=== PATIENT | female | born 1940 | race Caucasian/White ===

== ENCOUNTER 2024-10-09 12:09 | Emergency (ER) | payer MEDICARE, SELFPAY ==
--- NOTE | 2024-10-09 12:10 | ED.WOUNDLAC ---
HPI - Wound/Laceration General Stated Complaint: Lacerstion To Right Thumb Discharge Plan Discharge Follow-up/Referrals: UNKNOWN,DOCTOR [Primary Care Provider]
--- NOTE | 2024-10-09 12:23 | PC.NURSE ---
while getting vital signs taken pt noted that bleeding had stopped and she no longer wanted to be seen. Pt left facility ambulating with strong, steady gait.
--- OUTSIDE RECORDS SUMMARY | 2024-10-09 12:29 | XMS_ITS | Clinical Summary ---
Author Organization [facility] Address [address] [place] [address] Care Team Providers Care School Librarian Name Role Phone Truong Pollack MD Unavailable Source Comments [facility],non-owned Affiliates and Associated Physician Practices is amultiple site organization consisting of ambulatory clinics and hospital sitesin [place], [place], [place] and [place]. This disclosure is being madepursuant to the Care Everywhere program and may not contain all information available regarding this patient. Last updated 10/26/17.[facility] Allergies No known active allergies Medications * Be aware that medications may not be up to date on this document. Alwaysverify current medications with the patient. Esomeprazole Magnesium (NEXIUM PO) Take 40 mg by mouth once daily. Active metoprolol tartrate IR (LOPRESSOR) 25 MG tablet Take 25 mg by mouth 2 times daily. Active vitamin E (TOCOPHERYL) 400 UNIT tablet Take by mouth once daily. Active vitamin C (ASCORBIC ACID) 1000 MG TABS tablet Take 1,000 mg by mouth once daily. Active vitamin D, cholecalciferol , 1000 UNITS tablet Take by mouth once daily. Active Vitamin A-Vitamin D-Minerals (SUPER D3 COMPLEX PO) Take by mouth once daily. Active cyanocobalamin (VITAMIN B-12) 1000 MCG tablet Take 1,000 mcg by mouth once daily. Active ferrous sulfate 325 (65 FE) MG tablet Take 325 mg by mouth every Sunday, Sunday & Sunday. Active coenzyme Q10 (COQ10) 100 MG capsule Take 100 mg by mouth once daily. Active atorvastatin (LIPITOR) 40 MG tablet Take 40 mg by mouth at bedtime. Active Active Problems Problem Noted Date Diagnosed Date Knee joint replacement by other means 05/06/2013 Osteoarthrosis involving lower leg 06/18/2012 Overview (05/01/2015): 2015 IMO Updt Immunizations Immunization Administration Dates Next Due INFLUENZA VACCINE 11/22/2012 INFLUENZA VACCINE, TRIV. (FL UZONE; FLULAVAL; FLUARIX; AFLURIA TRIVALENT; 6MO+), 0.5 ML (IIV3) 10/24/2013 PNEUMOCOCCAL PPSV23 04/17/2013 Social History Tobacco Use Types Packs/Day Years Used Date Smoking Tobacco: Former Tobacco Cessation:Counseling Given: Yes Alcohol Use Standard Drinks/Week Comments No 0 (1 standard drink = 0.6 oz pur e alcohol) Comments No Sex and Gender Information Value Date Recorded Sex Assigned at Not on file Legal Sex Female 3:51 PM CDT Gender Identity Not on file Sexual Orientation Not on file Last Filed Vital Signs Vital Sign Reading Time Taken Comments Blood Pressure 138/44 10/24/2013 8:01 AM CDT Pulse 57 10/24/2013 8:01 AM CDT Temperature 36.3 C (97.3 F) 10/24/2013 8:01 AM CDT Respiratory Rate 16 10/24/2013 8:01 AM CDT Oxygen Saturation 95% 10/24/2013 8:01 AM CDT Inhaled Oxygen Concentration - - Weight 76.6 kg (168 lb 12.8 oz) 10/22/2013 7:00 AM CDT Height 160 cm (5' 3) 10/22/2013 7:00 AM CDT Body Mass Index 29.9 10/22/2013 7:00 AM CDT Plan of Treatment Health Maintenance Due Date Last Done Comments BONE DENSITY TESTING 1939 DTAP/TDAP/TD VACCINES (1 - Tdap) 1958 ZOSTER VACCINE (1 of 2) 1989 Respiratory Syncytial Virus (RSV) Vaccine Pt: or over 60 yrs (1 - 1-dose 75+ series) 2014 PNEUMOCOCCAL VACCINE 50+ (2 of 2 - PCV) 04/17/2014 04/17/2013 DEPRESSION SCREENING 02/06/2024 COVID-19 VACCINE (1 - 2023-2 5 season) 2024 INFLUENZA VACCINE (#1) 2024 4, 11/22/2012 HEPATITIS B VACCINE Aged Out No longe r eligible based on patient's age to complete this topic HIB VACCINE Aged Out No longer eligi ble based on patient's age to complete this topic HPV VACCINE Aged Out No longer eligi ble based on patient's age to complete this topic MENINGOCOCCAL (Group B) VACCINE SHARED DECISION-MAKING Aged Out No longer eligible based on patient's age to complete this topic MENINGOCOCCAL GROUPS A/C/Y/W VACCINE Aged Out No longer eligible b ased on patient's age to complete this topic Medical Devices Implanted Type Area Airplane Refueler Device Identifier Shelf Expiration Date Model / Serial / Lot Lui Bone Bomoseen Hv Implanted:Qty: 1 on 04/14/2013 by Turong Pollack MD at [facility] Left: [employer] 10/15/2014 [id number] / / [id number] Ty Tibial I Beam Fix Bar 71mm Implanted:Qty: 1 on 04/14/2013 by Truong Pollack MD at [facility] Left: [employer] 12/15/2022 [id number] / / [id number] Kn Ins Vangurd Fem Cocr R-Intlok Implanted:Qty: 1 on 04/14/2013 by Truong Pollack MD at [facility] Left: [employer] 02/14/2023 [id number] / / [id number] Ngozin Pat Arcom Wire Polyeth Xsm 28 X 8 Implanted:Qty: 1 on 04/14/2013 by Truong Pollack MD at [facility] Left: [employer] 08/14/2017 [id number] / / [id number] Brdg Tib Anu Stbl 12mm X 71mm Implanted:Qty: 1 on 04/14/2013 by Truong Pollack MD at [facility] Left: [employer] 01/14/2017 [id number] / / [id number] Brdg Tib Anu Stbl 14mm X 71mm Implanted:Qty: 1 on 10/22/2013 by Truong Pollack MD at [facility] Right: [employer] 07/05/2018 [id number] / / [id number] Lui Bone Bomoseen Hv Implanted:Qty: 1 on 10/22/2013 by Truong Pollack MD at [facility] Right: [employer] 06/05/2015 [id number] / / [id number] Ty Tibial I Beam Fix Bar 71mm Implanted:Qty: 1 on 10/22/2013 by Truong Pollack MD at [facility] Right: [employer] 08/05/2023 [id number] / / [id number] Butn Pat [employer] Wire Polyeth Xsm 28 X 8 Implanted:Qty: 1 on 10/22/2013 by Truong Pollack MD at [facility] Right: [employer] 08/04/2018 [id number] / / [id number] Kn Ins Vangurd Fem Cocr R-Intlok 62.5mm Implanted:Qty: 1 on 10/22/2013 by Truong Pollack MD at [facility] Right: [employer] 09/05/2023 [id number] / / [id number] Insurance MEDICARE [facility] MEDICARE [facility] Advance Directives Documents on File Type Date Recorded Patient Planning And Analysis Manager Expl anation Adv Directive/Living Will/POA 04/18/2013 5:12 PM EXTERNAL FACILITY DOCUMENTATION Adv Directive/Living Will/POA 04/14/2013 6:31 AM POA * Full Code (Latest Code Status on File) Date Activated Date Inactivated Comments 10/22/2013 11:16 AM 10/24/2013 2:44 PM * Full Code Date Activated Date Inactivated Comments 04/14/2013 12:51 PM 04/17/2013 11:09 AM Care Teams School Librarian Relationship Specialty [place] [id number] [place] [address] Orthopedic Surgery 06/18/12
--- OUTSIDE RECORDS SUMMARY | 2024-10-09 12:29 | XMS_ITS | Clinical Summary ---
Author Organization [facility] Address [address] [facility], [place] [address] Phone Care Team Providers Care Mower Sharpener Name Role Phone Laz Nunez DPM Unavailable [phone] Edilia Dailey APRN, ORAL COMMUNICATION INSTRUCTOR Unavailable Kristin Heath DO Primary Care Provider [phone] John Fox MD Unavailable [phone] Allergies Active Allergy Reactions Criticality Noted Date Comments Atorvastatin Unknown 10/01/2024 Medications pantoprazole (PROTONIX) 40 MG Tablet Delayed ResponseIndications: Chronic gastroesophageal reflux disease TAKE 1 TABLET BY MOUTH DAILY 100 Tablet 2 5 Active amLODIPine (NORVASC) 10 MG Tablet Take 1 Tablet by mouth daily. 100 Tablet 1 5 Active aspirin 81 MG Chewable Tablet Take 1 Tablet by mouth daily. 5 Active lisinopril (PRINIVIL, ZESTRIL) 5 MG Tablet Take 1 Tablet by mouth daily. 90 Tablet 5 Active rosuvastatin (CRESTOR) 20 MG Tablet Take 1 Tablet by mouth daily. 90 Tablet 5 Active clopidogrel (PLAVIX) 75 MG Tablet Take 1 Tablet by mouth daily. 90 Tablet 5 Active Aspirin 81 MG Tablet Take 81 mg by mouth daily. 025 Discontin ued(Thera py completed ) naproxen (NAPROSYN) 500 MG Tablet Take 1 Tablet by mouth 2 times daily (with meals). 20 Tablet 5 025 Discontin ued(Yamilkarodo py completed ) Active Problems Problem Noted Date Diagnosed Date Unilateral weakness 10/01/2024 Lip lesion 06/18/2024 Strain of right ankle 06/18/2024 Gastroesophageal reflux disease 12/20/2022 Hypertension, essential 04/09/2020 03/30/19 24 Overview (03/30/2023): Last Assessment & Plan: The blood pressure is under good control. Ideally it should be under 130/80. Continue medications without adjustment. Continue efforts to eat well (4-5 fruits and veggies) daily and exercise for about 30 min nearly every day. Watch salt intake, keeping to less than 2000mg per day. Limit alcohol. Include strategies to cope with stress. Ordered amlodipine through mail order at beginning of week but still not arrived. Out of amlodipine. 10 day supply sent to [facility] in case it does not arrive today. Metatarsalgia, left foot 06/08/2017 [place] or callus 06/08/2017 Pain of left foot 06/08/2017 Other hyperlipidemia 04/11/2017 03/30/2023 Overview (03/30/2023): Last Assessment & Plan: 07/26/17 JO=099 HDL=83 TG=98 UIH=990 TC/HDL=3.5 07/23/18 BQ=813 HDL=83 GG=640 ETM=713 TC/HDL=3.0 11/12/19 PY=711 HDL=76 AM=022 ZHJ=758 TC/HDL=3.0 Cannot tolerate statin therapy. Watches intake & exercises 3x/day. Adverse drug effect 02/02/2017 Statin intolerance 02/02/2017 Hypermobile joint syndrome of right foot 016 Hallux valgus (acquired), right foot 02/12/2015 Metatarsalgia of right foot 02/12/2015 Instability of metatarsophalangeal joint of righ t foot 02/12/2015 Hammer toe of right foot 02/12/2015 Dislocation of metatarsophal angeal joint of lesser toe of right foot 02/12/2015 Knee joint replacement by other means 05/06/2013 03/30/2023 Primary osteoarthritis involving multiple joints 06/18/2012 03/30/2023 Overview (03/30/2023): 2015 IMO Updt Resolved Problems Problem Noted Date Diagnosed Date Resolved Date Bradycardia 02/02/2017 02/03/2017 Encounters Date Type Department Care Team Description 10/07/2024 Telephone [facility] [address] [place] [phone] Kristin Heath DO 10/01/2024 12:17 PM CDT - 10/02/2024 1:20 PM CDT Hospital Encounter [facility] [address] [place] [phone] Aparna Finley APRN, ORAL COMMUNICATION INSTRUCTOR Carmicheal, MD Trace Moulton, Felix Castañeda MD Unilateral weakness Discharge Disposition: Home Health Care Svc 10/01/2024 Travel 09/29/2024 Telephone [facility] [address] [place] [address] Kristin Heath DO Advice Only from Last 3 Months Immunizations Immunization Administration Dates Next Due Covid-19, Mrna, Lnp-s, Pf, 3 0 Mcg/0.3 Ml Dose (Pfizer) 03/30/2020 Influenza Vaccine 12/22/2013, 4,10/24/2013,10/24 Influenza Vaccine greater than 3 yrs 11/20/2022, 10/06/2014 Influenza Vaccine, Quadrivalent, PF 11/05/2019 Influenza Vaccine,unspecifie d Formulation 11/05/2017,11/05/2016,11/22/2012 Influenza, Quadrivalent, Adjuvanted 12/09/2020 Influenza, Seasonal, Injecta ble, Undefined 11/20/2022,10/06/2014 Influenza, recombinant, trivalent, PF 11/17/2014 Pneumococcal Vaccine - 13 Valent 07/17/2018 Pneumococcal Vaccine Adult - 23 Valent 4,07/09/2012 Pneumococcal conjugate PCV20 , polysaccharide [id number] conjugate, adjuvant, PF 12/03/2023 Zoster Vaccine Recombinant 02/13/2022 Zoster Vaccine, live 08/29/2012 Family History Medical History Relation Name Comments Heart Attack Father Heart Attack Mother Relation Name Status Comments Father Mother Social History Tobacco Use Types Packs/Day Years Used Date Smoking Tobacco: Former Smokeless Tobacco: Never Tobacco Cessation:Counseling Given: Yes Alcohol Use Standard Drinks/Week Comments No 0 (1 standard drink = 0.6 oz pur e alcohol) Social Connection and Isolation Panel Answer Date Recorded In a typical week, how many times do you talk on the phone with family, friends, or neighbors? Patient declined 03/24/2024 How often do you get togethe r with friends or relatives? Patient declined 03/24/2024 How often do you attend muslim or rastafarian serv ices? Patient declined 03/24/2024 Do you belong to any clubs o r organizations such as muslim groups, unions, [employer] or athletic groups, or school groups? Patient declined 03/24/2024 How often do you attend meet ings of the clubs or organizations you belong to? Patient declined 03/24/2024 Are you , , di vorced, , never , or living with a partner? Patient declined 03/24/2024 AUDIT-C Answer Date Recorded Q1: How often do you have a drink containing alc ohol? Patient declined 03/24/2024 Q2: How many drinks containi ng alcohol do you have on a typical day when you are drinking? Patient declined 03/24/2024 Q3: How often do you have si x or more drinks on one occasion? Patient declined 03/24/2024 Overall Financial Resource Strain (CARDIA) Answe r Date Recorded How hard is it for you to pa y for the very basics like food, housing, medical care, and heating? Patient declined 03/24/2024 PHQ-2 Answer Date Recorded Total Score - Questions 1-9 0 03/08 [facility] of Occupat ional Health - Occupational Stress Questionnaire Answer Date Recorded Do you feel stress - tense, restless, nervous, or anxious, or unable to sleep at night because your mind is troubled all the time - these days? Patient declined 03/24/2024 Exercise Vital Sign Answer Date Recorde d On average, how many days pe r week do you engage in moderate to strenuous exercise (like a brisk walk)? Patient declined On average, how many minutes do you engage in exercise at this level? Patient declined 03/24/2024 Housing Stability Vital Sign Answer Shawn e Recorded In the last 12 months, was t here a time when you were not able to pay the mortgage or rent on time? Patient declined 03/24/19 25 In the past 12 months, how m any times have you moved where you were living? 0 03/24/2024 At any time in the past 12 m [facility], were you homeless or living in a half-way (including now)? Patient declined 03/24/2024 Hunger Vital Sign Answer Date Recorded Within the past 12 months, y ou worried that your food would run out before you got the money to buy more. Patient declined Within the past 12 months, t he food you bought just didn't last and you didn't have money to get more. Patient declined PRAPARE - Transportation Answer Date Re corded In the past 12 months, has l ack of transportation kept you from medical appointments or from getting medications? Patient declined 10/01/2024 In the past 12 months, has l ack of transportation kept you from meetings, work, or from getting things needed for daily living? Patient declined 10/01/2024 Housing Stability Vital Sign Answer Shawn e Recorded In the last 12 months, was t here a time when you were not able to pay the mortgage or rent on time? Patient declined 10/02/19 25 In the past 12 months, how m any times have you moved where you were living? 1 10/01/2024 At any time in the past 12 m [facility], were you homeless or living in a half-way (including now)? Patient declined 10/01/2024 [facility] Utilities Answer Date Recorded In the past 12 months has th e electric, gas, oil, or water company threatened to shut off services in your home? Patient declined 10/01/2024 Education Answer Date Recorded What is the highest level of school you have completed or the highest degree you have received? 12th grade 12/20/2022 Sexually Active Control Partners Comments Not Currently Comments No Sex and Gender Information Value Date Recorded Sex Assigned at Not on file Legal Sex Female 11:04 PM CDT Gender Identity Not on file Sexual Orientation Not on file Last Filed Vital Signs Vital Sign Reading Time Taken Comments Blood Pressure 162/70 10/02/2024 8:10 AM CDT Pulse 69 10/02/2024 4:12 AM CDT Temperature 36.8 C (98.3 F) 10/02/2024 8:10 AM CDT Respiratory Rate 18 10/02/2024 8:10 AM CDT Oxygen Saturation 100% 10/02/2024 8:10 AM CDT Inhaled Oxygen Concentration - - Weight 73.6 kg (162 lb 3.2 oz) 10/01/2024 12:19 PM CDT Height 157.5 cm (5' 2) 10/01/2024 12:19 PM CDT Body Mass Index 29.67 10/01/2024 12:19 PM CDT Plan of Treatment Upcoming Encounters Date Type Department Care Team (Late st Contact Info) Description 10/10/2024 7:30 AM CDT [facility] [address] [place] [address] Jerica, Janice N, DATA ANALYSIS ASSISTANT, ORAL COMMUNICATION INSTRUCTOR [address] [facility] [address] [place] [address] Health Maintenance Due Date Last Done Comments Hepatitis C Virus (HCV) Screening 1940 TdaP Immunization 1940 Respiratory Syncytial Virus (RSV) Immunization (Adult) (1 - 1-dose 75+ series) 2014 Zoster Immunization (3 of 3) 04/10/2022 02/13/2022, 08/29/2012 DEXA Bone Density 05/28/2024 05/28/2020, 05/28/2020 Influenza Immunization (#1) 10/06/202411/05, 11/20/2022, 12/09/2020, Additional history exists SARS-COV-2 Immunization ( season) 2024 12/03/2023, 11/09/2022, 02/12/2022, Additional history exists Pneumococcal Immunization (50+ years) Completed 12/03/2023, 07/17/2018, 04/17/2013, Additional history exists Pneumococcal Immunization Combined Discontinued 12/03/2023, 07/17/2018, 04/17/2013, Additional history exists Hepatitis B Immunization Aged Out No longer eligible based on patient's age to complete this topic Human Papillomavirus (HPV) Immunization Aged Out No longer eligible based on patient's age to complete this topic Meningococcal Immunization (ACWY) Aged Out No longer eligible based on patient's age to complete this topic Rotavirus Immunization Aged Out No lo nger eligible based on patient's age to complete this topic Medical Devices Implanted Type Area Professional Skateboarder Device Identifier Shelf Expiration Date Model / Serial / Lot Lapidus Cp Plate Implanted:Qty: 1 on 02/26/2015 by Laz Nunez DPM at [facility] Right: Foot [employer] / / [id number] Locking Screw Implanted:Qty: 2 on 02/26/2015 by [facility] DPM at [facility] Right: Foot [employer] / [employer] / / [id number] Non Locking Screw Implanted:Qty: 1 on 02/26/2015 by [facility]une[facility] DPM at [facility] Right: Foot [employer] / [employer] / / [id number] Locking Screw Implanted:Qty: 2 on 02/26/2015 by Laz Nunez DPM at [facility] Right: Foot [employer] / [employer] / / [id number] Easyclip Implanted:Qty: 1 on 02/26/2015 by Laz Nunez DPM at [facility] Right: Foot [employer] / [employer] 04/05/2019 [id number] / / [id number] J Procedures Procedure Name Priority Date/Time Associated Diagnosis Comments CBC WITH AUTO DIFFERENTIAL Routine 10/02/2024 5:57 AM CDT COMPLETE BLOOD COUNT (CBC) WITH DIFF Routine 10/02/2024 5:57 AM CDT BASIC METABOLIC PANEL W/ CALCIUM TOTAL Routine 10/02/2024 5:57 AM CDT LIPID PANEL STAT 10/02/2024 5:57 AM CDT RHYTHM STRIP 10/02/2024 12:00 AM CDT RHYTHM STRIP 10/02/2024 12:00 AM CDT OT EVALUATE AND TREAT Routine 10/01/2024 5:25 PM CDT PT EVALUATE AND TREAT Routine 10/01/2024 5:25 PM CDT TROPONIN I, HIGH SENSITIVITY (HSTRP) STAT 10/01/2024 3:[address] ANGIO HEAD AND NECK WWO CONTRAST W PP Stat with Interpretation 10/01/2024 3:[address] HEAD OR BRAIN WO CONTRAST Stat with Interpretation 10/01/2024 1:49 PM CDT URINALYSIS REFLEX IF INDICATED BY ABNORMAL RESULTS STAT 10/01/2024 1:39 PM CDT BLUE TOP TUBE STAT 10/01/2024 12:57 PM CDT CBC WITH AUTO DIFFERENTIAL STAT 10/01/2024 12:57 PM CDT HEMOGLOBIN A1C W/ ESTIMATED GLUCOSE STAT 10/01/2024 12:57 PM CDT MAGNESIUM (MG) STAT 10/01/2024 12:57 PM CDT EXTRA TUBES STAT 10/01/2024 12:57 PM CDT TROPONIN I, HIGH SENSITIVITY (HSTRP) STAT 10/01/2024 12:57 PM CDT CMP (COMPREHENSIVE METABOLIC PANEL) STAT 10/01/2024 12:57 PM CDT COMPLETE BLOOD COUNT (CBC) WITH DIFF STAT 10/01/2024 12:57 PM CDT CRITICAL CARE Routine 10/01/2024 12:52 PM CDT EKG 12 LEAD STAT 10/01/2024 12:28 PM CDT RHYTHM STRIP 10/01/2024 12:00 AM CDT RHYTHM STRIP 10/01/2024 12:00 AM CDT EKG SCAN 10/01/2024 12:00 AM CDT RHYTHM STRIP 10/01/2024 12:00 AM CDT MAGALIS BONE DENSITOMETRY AXIAL SKELETON Routine 05/28/2020 10:35 AM CDT Encounter for osteoporosis screening in asymptomatic postmenopausal patient from Last 3 Months or Most Recently Relevant to Health Maintenance Results * (ABNORMAL) CBC with Auto Differential (10/02/2024 5:57 AM CDT) Only the most recent of2 resultswithin the time period is included. WBC 5.71 4.00 - 12.00 10(3)/mcL 10/02/2024 6:28 AM CDT [facility] RBC 4.23 3.80 - 5.30 10(6)/mcL 10/02/2024 6:28 AM CDT [facility] HEMOGLOBIN (HGB) 12.5 12.0 - 15.8 g/dL 10/02/2024 6:28 AM CDT [facility] HEMATOCRIT (HCT) 38.2 36.0 - 47.0 % 10/02/2024 6:28 AM CDT [facility] MCV 90.3 82.0 - 96.0 fL 10/02/2024 6:28 AM CDT [facility] MCH 29.6 26.0 - 34.0 pg 10/02/2024 6:28 AM CDT [facility] MCHC 32.7 31.0 - 36.0 g/dL 10/02/2024 6:28 AM CDT [facility] PLATELET COUNT 370 140 - 440 10(3)/mcL 10/02/2024 6:28 AM CDT [facility] RDW 13.4 11.8 - 15.5 % 10/02/2024 6:28 AM CDT [facility] MPV 9.9 9.7 - 12.4 fL 10/02/2024 6:28 AM CDT [facility] NEUTROPHILS 51.3 47.0 - 73.0 % 10/02/2024 6:28 AM CDT [facility] LYMPHOCYTES 32.6 18.0 - 42.0 % 10/02/2024 6:28 AM CDT [facility] MONOCYTES 11.6 4.0 - 12.0 % 10/02/2024 6:28 AM CDT [facility] EOSINOPHILS 3.2 0.0 - 5.0 % 10/02/2024 6:28 AM CDT [facility] BASOPHILS 1.1(H) 0.0 - 1.0 % 10/02/2024 6:28 AM CDT [facility] IMMATURE GRANULOCYTE 0.2 0.0 - 0.4 % 10/02/2024 6:28 AM CDT [facility] ABSOLUTE NEUTROPHILS 2.94 1.60 - 7.70 10(3)/mcL 10/02/2024 6:28 AM CDT [facility] ABSOLUTE LYMPHOCYTES 1.86 1.30 - 3.20 10(3)/mcL 10/02/2024 6:28 AM CDT [facility] ABSOLUTE MONOCYTES 0.66 0.20 - 1.00 10(3)/mcL 10/02/2024 6:28 AM CDT [facility] ABSOLUTE EOSINOPHIL 0.18 0.00 - 0.40 10(3)/mcL 10/02/2024 6:28 AM CDT [facility] ABSOLUTE BASOPHILS 0.06 0.00 - 0.10 10(3)/mcL 10/02/2024 6:28 AM CDT [facility] ABSOLUTE IMMATURE GRANULOCYTE 0.01 0.00 - 0.03 10 (3) mcL. 10/02/2024 6:28 AM CDT [facility] NRBC PER 100 WBC 0 10/03/19 6:28 AM CDT [facility] Blood Venipuncture / Unknown 10/02/2024 5:57 AM CDT 10/02/2024 6:22 AM CDT us Ramón Fournier APRN, [facility] HEMATOLOGY ORDERABLES F inal Result Performing Organization Address City/[facility]/ZIP Co de Phone Number [facility] [address] [place] [address] * (ABNORMAL) Lipid Panel (10/02/2024 5:57 AM CDT) CHOLESTEROL 221(H) <200 mg/dL 10/02/2024 6:49 AM CDT [facility] TRIGLYCERIDES 111 <150 mg/dL 10/02/2024 6:49 AM CDT [facility] HDL CHOLESTEROL 67 >40 mg/dL 6:49 AM CDT [facility] LDL 132(H) <130 mg/dL 10/02/2024 6:49 AM CDT [facility] VLDL 22 10 - 50 mg/dL 10/02/2024 6:49 AM CDT [facility] CHOL/HDL RATIO 3.3 0.0 - 4.4 10/02/2024 6:49 AM CDT [facility] NON-HDL CHOLESTEROL 154(H) <130 mg/dL 10/02/2024 6:49 AM CDT [facility] Blood Venipuncture / Unknown 10/02/2024 5:57 AM CDT 10/02/2024 6:22 AM CDT us Ramón Fournier APRN, ORAL COMMUNICATION INSTRUCTOR CHEMISTRY ORDERABLES Fi nal Result Performing Organization Address City/[facility]/ZIP Co de Phone Number [facility] [address] [place] [address] * BMP with Ca, Total (10/02/2024 5:57 AM CDT) SODIUM 142 136 - 145 mmol/L 10/02/2024 6:49 AM CDT [facility] POTASSIUM 4.1 3.5 - 5.1 mmol/L 10/02/2024 6:49 AM CDT [facility] CHLORIDE 104 98 - 107 mmol/L 10/02/2024 6:49 AM CDT [facility] CO2, VENOUS 27 22 - 30 mmol/L 10/02/2024 6:49 AM CDT [facility] ANION GAP 15.1 <18.0 mmol/L 10/02/2024 6:49 AM CDT [facility] GLUCOSE 96 70 - 99 mg/dL 10/02/2024 6:49 AM CDT [facility] BUN 10 10 - 20 mg/dL 10/02/2024 6:49 AM T [facility] CREATININE, BLOOD 0.63 0.60 - 1.00 mg/dL 10/02/2024 6:49 AM T [facility] BUN/CREATININE RATIO 16 12 - 20 ratio 10/02/2024 6:49 AM [facility] CALCIUM 9.3 8.7 - 10.5 mg/dL 10/02/2024 6:49 AM T [facility] GFR, ESTIMATED >60 >=60 10/02/2024 6:49 AM T [facility] Comment: Creatinine Clearance is the preferred criteria for selecting drug dose adjustments in renally impaired patients. The GFR is provided as additional pertinent clinical information. GFR is reported in mL/min/1.73 sq m. Calculation based on the 2020 Chronic Kidney Disease Epidemiology Collaboration (CKD-EPI) equation refit without adjustment for race. GFR, EST. >60 >=60 025 6:49 AM [facility] Comment: Creatinine Clearance is the preferred criteria for selecting drug dose adjustments in renally impaired patients. The GFR is provided as additional pertinent clinical information. GFR is reported in mL/min/1.73 sq m. Calculation based on the 2009 Chronic Kidney Disease Epidemiology Collaboration (CKD-EPI). GFR, EST. NONAFRICAN >60 >=60 10/02/2024 6:49 AM CDT [facility] Comment: Creatinine Clearance is the preferred criteria for selecting drug dose adjustments in renally impaired patients. The GFR is provided as additional pertinent clinical information. GFR is reported in mL/min/1.73 sq m. Calculation based on the 2009 Chronic Kidney Disease Epidemiology Collaboration (CKD-EPI). Blood Venipuncture / Unknown 10/02/2024 5:57 AM CDT 10/02/2024 6:22 AM CDT us Ramón Fournier DATA ANALYSIS ASSISTANT, ORAL COMMUNICATION INSTRUCTOR CHEMISTRY ORDERABLES Fi nal Result [facility] [address] [place] [address] * RHYTHM STRIP (10/02/2024 12:00 AM CDT) Only the most recent of5 resultswithin the time period is included. 10/02/2024 us Provider Scan IMG ECG ORDERABLES Final Result Performing Organization Address City/[facility]/ZIP Co de Phone Number RESULTING AGENCY * TROPONIN I, HIGH SENSITIVITY (HSTRP) (10/01/2024 3:26 PM CDT) Only the most recent of2 resultswithin the time period is included. TROPONIN I, HIGH SENSITIVITY- GARCIA 7.4 <=14.0 ng/L 10/01/2024 4:19 PM CDT [facility] Comment: High-sensitivity troponin I results are reported in ng/L making the result appear to be 1,000 times higher than the contemporary troponin I value which is reported in ng/ml. Results from Garcia. Blood Venipuncture / Unknown 10/01/2024 3:26 PM CDT 10/01/2024 3:48 PM CDT us Oliver Coy MD CHEMISTRY ORDERABLES Final Result [facility] [address] [place] [address] * CT ANGIO HEAD AND NECK WWO CONTRAST W PP (10/01/2024 3:20 PM CDT) Anatomical Region Laterality Modality vascular N/A Computed Tomogra phy 10/01/2024 4:19 PM CDT Impressions 10/01/2024 4:21 PM CDT IMPRESSION: CTA HEAD: 1. No large vessel occlusion. 2. Moderate focal stenosis of the left KID CLUB ATTENDANT P2 segment. CTA NECK: 1. No large vessel occlusion or hemodynamically significant stenosis. 2. A 1.2 cm cystic focus of the right base of tongue most likely represents a retention cyst. Correlation with physical exam is recommended. The results were communicated to the ordering physician by the Radiology customer support executive at time of this dictation. Narrative 10/01/2024 4:21 PM CDT EXAM DESCRIPTION: CT ANGIO HEAD AND NECK WWO CONTRAST W PP REASON FOR STUDY: pt had an episode of right handed weakness 09/27. pt states she has felt off today. TECHNIQUE: Post IV contrast scanning, thin section axial imaging from the great vessel origins through the brain. 3D MIP images rendered on scanning unit and reviewed at time of interpretation. Carotid stenosis measurements are based on NASCET criteria. Automated exposure control was used as a dose optimization technique for this examination. CONTRAST TYPE/DOSE: 100mL of IOPAMIDOL 76 % IV SOLN injected via Intravenous COMPARISON: Same day noncontrast head CT FINDINGS: HEAD CTA: ANTERIOR CIRCULATION: The anterior and middle cerebral arteries are all patent. No evidence of aneurysm or focal stenosis. POSTERIOR CIRCULATION: Left V4 vertebral artery is patent. The right vertebral artery does not contribute to the basilar artery and appears to terminate as PICA. There is mild multifocal stenosis of the basilar artery. Moderate focal stenosis of the left KID CLUB ATTENDANT P2 segment. NECK CTA: RIGHT CAROTIDS: No internal, external or common carotid stenosis. Mild atherosclerotic calcification of the carotid bulb without significant stenosis. LEFT CAROTIDS: No internal, external or common carotid stenosis. LEFT VERTEBRAL: Patent. No significant stenosis. No dissection. RIGHT VERTEBRAL: Mild multifocal stenosis and irregularity of the right vertebral artery is most likely due to atherosclerotic disease. AORTIC ARCH: Normal three-vessel origin. Bilateral subclavian arteries are patent. Mild stenosis of the origin of the left subclavian artery. No dissection. NECK SOFT TISSUE: There is a 1.2 cm cystic focus of the right base of tongue (series 4, image 329). This most likely represents retention cysts. Correlation with physical exam is recommended. INCLUDED LUNGS: Mild emphysema. OTHER: Severe degenerative disease C5-C6 and C6-C7. Cervical spondylosis. THIS IS AN ELECTRONICALLY VERIFIED FINAL REPORT 10/01/2024 4:19 PM - Electronically signed by Jordan Randle M.D. MM: MM Report ID: [id number] Reading Location: [id number] Procedure Note Jordan Randle MD - 10/01/2024 EXAM DESCRIPTION: CT ANGIO HEAD AND NECK WWO CONTRAST W PP REASON FOR STUDY: pt had an episode of right handed weakness 09/27. pt states she has felt off today. TECHNIQUE: Post IV contrast scanning, thin section axial imaging from the great vessel origins through the brain. 3D MIP images rendered on scanning unit and reviewed at time of interpretation. Carotid stenosis measurements are based on NASCET criteria. Automated exposure control was used as a dose optimization technique for this examination. CONTRAST TYPE/DOSE: 100mL of IOPAMIDOL 76 % IV SOLN injected via Intravenous COMPARISON: Same day noncontrast head CT FINDINGS: HEAD CTA: ANTERIOR CIRCULATION: The anterior and middle cerebral arteries are all patent. No evidence of aneurysm or focal stenosis. POSTERIOR CIRCULATION: Left V4 vertebral artery is patent. The right vertebral artery does not contribute to the basilar artery and appears to terminate as PICA. There is mild multifocal stenosis of the basilar artery. Moderate focal stenosis of the left KID CLUB ATTENDANT P2 segment. NECK CTA: RIGHT CAROTIDS: No internal, external or common carotid stenosis. Mild atherosclerotic calcification of the carotid bulb without significant stenosis. LEFT CAROTIDS: No internal, external or common carotid stenosis. LEFT VERTEBRAL: Patent. No significant stenosis. No dissection. RIGHT VERTEBRAL: Mild multifocal stenosis and irregularity of the right vertebral artery is most likely due to atherosclerotic disease. AORTIC ARCH: Normal three-vessel origin. Bilateral subclavian arteries are patent. Mild stenosis of the origin of the left subclavian artery. No dissection. NECK SOFT TISSUE: There is a 1.2 cm cystic focus of the right base of tongue (series 4, image 329). This most likely represents retention cysts. Correlation with physical exam is recommended. INCLUDED LUNGS: Mild emphysema. OTHER: Severe degenerative disease C5-C6 and C6-C7. Cervical spondylosis. THIS IS AN ELECTRONICALLY VERIFIED FINAL REPORT 10/01/2024 4:19 PM - Electronically signed by Jordan Randle M.D. MM: MM Report ID: [id number] Reading Location: [id number] IMPRESSION: CTA HEAD: 1. No large vessel occlusion. 2. Moderate focal stenosis of the left KID CLUB ATTENDANT P2 segment. CTA NECK: 1. No large vessel occlusion or hemodynamically significant stenosis. 2. A 1.2 cm cystic focus of the right base of tongue most likely represents a retention cyst. Correlation with physical exam is recommended. The results were communicated to the ordering physician by the Radiology customer support executive at time of this dictation. Aparna Finley APRN, ORAL COMMUNICATION INSTRUCTOR IMG CT ORDERABLES Fin al Result * CT HEAD OR BRAIN WO CONTRAST (10/01/2024 1:49 PM CDT) Anatomical Region Laterality Modality Head N/A Computed Tomogra phy 10/01/2024 3:02 PM CDT Impressions 10/01/2024 3:05 PM CDT IMPRESSION: No acute intracranial findings. Minor chronic changes are noted. Narrative 10/01/2024 3:05 PM CDT EXAM DESCRIPTION: CT HEAD OR BRAIN WO CONTRAST REASON FOR STUDY: patient had an episode of right handed weakness 09/29. pt states today she has been feeling a little off TECHNIQUE: Axial images acquired through the brain without intravenous contrast. Images stored on PACS. Automated exposure control was used as a dose optimization technique for this examination. COMPARISON: None FINDINGS: BRAIN: No hemorrhage, edema or mass effect. No recent infarct. Patchy hypodensity of the cerebral white matter suggests chronic small-vessel ischemic changes. Diffuse atrophy of the brain is noted. EXTRA-AXIAL SPACES: No fluid collections. No masses. CALVARIUM: No fracture. SINUSES/MASTOIDS: No fluid or mucosal thickening. ORBITS: No significant abnormality. OTHER: No other significant abnormality. THIS IS AN ELECTRONICALLY VERIFIED FINAL REPORT 10/01/2024 3:02 PM - Electronically signed by Terry RANDOLPH: TOMASA Report ID: [id number] Reading Location: [id number] Procedure Note Terry Brandon MD - 10/01/2024 EXAM DESCRIPTION: CT HEAD OR BRAIN WO CONTRAST REASON FOR STUDY: patient had an episode of right handed weakness 09/29. pt states today she has been feeling a little off TECHNIQUE: Axial images acquired through the brain without intravenous contrast. Images stored on PACS. Automated exposure control was used as a dose optimization technique for this examination. COMPARISON: None FINDINGS: BRAIN: No hemorrhage, edema or mass effect. No recent infarct. Patchy hypodensity of the cerebral white matter suggests chronic small-vessel ischemic changes. Diffuse atrophy of the brain is noted. EXTRA-AXIAL SPACES: No fluid collections. No masses. CALVARIUM: No fracture. SINUSES/MASTOIDS: No fluid or mucosal thickening. ORBITS: No significant abnormality. OTHER: No other significant abnormality. THIS IS AN ELECTRONICALLY VERIFIED FINAL REPORT 10/01/2024 3:02 PM - Electronically signed by Terry Brandon M.D. KH: TOMASA Report ID: [id number] Reading Location: [id number] IMPRESSION: No acute intracranial findings. Minor chronic changes are noted. Oliver Coy MD IM CT ORDERABLES Final Re sult * (ABNORMAL) URINALYSIS REFLEX IF INDICATED BY ABNORMAL RESULTS (10/01/2024 1:39 PM CDT) SPECIFIC GRAVITY 1.010 1.003 - 1.030 10/01/2024 3:01 PM CDT [facility] URINE PH 7.0 5.0 - 9.0 10/01/2024 3:01 PM CDT [facility] WBC ESTERASE 100 /uL(A) Negative 10/01/2024 3:01 PM CDT [facility] NITRITE Negative Negative 10/01/2024 3:01 PM CDT [facility] PROTEIN, RANDOM URINE 15 mg/dL(A) Negative 10/01/2024 3:01 PM CDT [facility] URINE GLUCOSE, QUAL Negative Negative 10/01/2024 3:01 PM CDT [facility] URINE KETONES Negative Negative 10/01/2024 3:01 PM CDT [facility] UROBILINOGEN Normal Normal mg/dL 10/01/2024 3:01 PM CDT [facility] URINE BLOOD 25 /uL(A) Negative ginger/ul 10/01/2024 3:01 PM CDT [facility] URINALYSIS COLOR Yellow 10/02/19 3:01 PM CDT [facility] URINALYSIS CLARITY Clear 10/01/2024 3:01 PM CDT [facility] WBC (Urine) 0-5 Negative, 0-5 /hpf 10/01/2024 3:01 PM CDT [facility] URINE RBC'S 0-2 Negative, 0-2 /hpf 10/01/2024 3:01 PM CDT [facility] EPITHELIAL CELLS Negative /lpf 10/02/19 3:01 PM CDT [facility] BACTERIA, URINE Negative Negative /hpf 10/01/2024 3:01 PM CDT [facility] Urine URINE SPECIMEN OBTAINED BY CLEAN CATCH PROCEDURE / Unknown Non-Phlebotomy Collection / Unknown 10/01/2024 1:39 PM CDT 10/01/2024 2:02 PM CDT us Aparna Finley DATA ANALYSIS ASSISTANT, ORAL COMMUNICATION INSTRUCTOR URINE ORDERABLES Razia l Result [facility] [address] [place] [address] * Hemoglobin A1C w/ Estimated Glucose (10/01/2024 12:57 PM CDT) HGB-A1C 5.1 4.0 - 6.0 % 10/01/2024 6:12 PM CDT [facility] Est Average Glucose 99.7 mg/dL 10/01/2024 6:12 PM CDT [facility] Blood Venipuncture / Unknown 10/01/2024 12:57 PM CDT 10/01/2024 1:08 PM CDT Narrative [facility] - 10/01/2024 6:12 PM CDT HEMOGLOBIN A1C: DIABETIC PATIENTS: WELL-CONTROLLED: 6.2 - 7.0 INTERMEDIATE WELL-CONTROLLED: 7.0 - 9.0 POORLY-CONTROLLED: >9.0 Specimens containing greater than 5% of Hemoglobin F may result in lower than expected % HbA1C results. Ramón Fournier DATA ANALYSIS ASSISTANT, ORAL COMMUNICATION INSTRUCTOR CHEMISTRY ORDERABLES Fi nal Result [facility] [address] [place] [address] * Blue Top Tube (10/01/2024 12:57 PM CDT) Blood No Phlebotomy Charged / Unknown 10/01/2024 12:57 PM CDT 10/01/2024 1:10 PM CDT Aparna Finley DATA ANALYSIS ASSISTANT, ORAL COMMUNICATION INSTRUCTOR HEMATOLOGY ORDERABLES Final Result [facility] [address] [place] [address] * Magnesium (Mg) [id number] (10/01/2024 12:57 PM CDT) MAGNESIUM 2.1 1.6 - 2.6 mg/dL 10/01/2024 1:37 PM CDT [facility] Blood Venipuncture / Unknown 10/01/2024 12:57 PM CDT 10/01/2024 1:08 PM CDT Aparna Finley APRN, CNP CHEMISTRY ORDERABLES Final Result [facility] [address] [place] [address] * (ABNORMAL) Comprehensive Metabolic Panel (Cmp) [id number] (10/01/2024 12:57 PM CDT) SODIUM 142 136 - 145 mmol/L 10/01/2024 1:37 PM CDT [facility] POTASSIUM 3.9 3.5 - 5.1 mmol/L 10/01/2024 1:37 PM CDT [facility] CHLORIDE 104 98 - 107 mmol/L 10/01/2024 1:37 PM CDT [facility] CO2, VENOUS 27 22 - 30 mmol/L 10/01/2024 1:37 PM CDT [facility] ANION GAP 14.9 <18.0 mmol/L 10/01/2024 1:37 PM CDT [facility] GLUCOSE 96 70 - 99 mg/dL 10/01/2024 1:37 PM CDT [facility] BUN 11 10 - 20 mg/dL 10/01/2024 1:37 PM CDT [facility] CREATININE, BLOOD 0.57(L) 0.60 - 1.00 mg/dL 10/01/2024 1:37 PM CDT [facility] BUN/CREATININE RATIO 19 12 - 20 ratio 10/01/2024 1:37 PM CDT [facility] TOTAL PROTEIN 7.0 6.0 - 8.0 g/dL 10/01/2024 1:37 PM CDT [facility] ALBUMIN 4.2 3.5 - 5.0 g/dL 10/01/2024 1:37 PM CDT [facility] A/G RATIO 1.5 1.0 - 2.2 10/01/2024 1:37 PM CDT [facility] CALCIUM 9.2 8.7 - 10.5 mg/dL 10/01/2024 1:37 PM CDT [facility] T BILI 0.4 0.2 - 1.2 mg/dL 10/01/2024 1:37 PM CDT [facility] SGOT (AST) 23 <43 U/L 10/01/2024 1:37 PM CDT [facility] SGPT (ALT) 12 <56 U/L 10/01/2024 1:37 PM CDT [facility] ALKALINE PHOSPHATASE 80 40 - 150 U/L 10/01/2024 1:37 PM CDT [facility] GFR, ESTIMATED >60 >=60 10/01/2024 1:37 PM CDT [facility] Comment: Creatinine Clearance is the preferred criteria for selecting drug dose adjustments in renally impaired patients. The GFR is provided as additional pertinent clinical information. GFR is reported in mL/min/1.73 sq m. Calculation based on the 2020 Chronic Kidney Disease Epidemiology Collaboration (CKD-EPI) equation refit without adjustment for race. GFR, EST. >60 >=60 025 1:37 PM CDT [facility] Comment: Creatinine Clearance is the preferred criteria for selecting drug dose adjustments in renally impaired patients. The GFR is provided as additional pertinent clinical information. GFR is reported in mL/min/1.73 sq m. Calculation based on the 2009 Chronic Kidney Disease Epidemiology Collaboration (CKD-EPI). GFR, EST. NONAFRICAN >60 >=60 10/01/2024 1:37 PM CDT [facility] Comment: Creatinine Clearance is the preferred criteria for selecting drug dose adjustments in renally impaired patients. The GFR is provided as additional pertinent clinical information. GFR is reported in mL/min/1.73 sq m. Calculation based on the 2009 Chronic Kidney Disease Epidemiology Collaboration (CKD-EPI). Blood Venipuncture / Unknown 10/01/2024 12:57 PM CDT 10/01/2024 1:08 PM CDT us Oliver Coy MD CHEMISTRY ORDERABLES Final Result [facility] [address] [facility], [place] [address] * Critical Care (10/01/2024 12:52 PM CDT) Narrative Oliver Coy MD - 10/01/2024 12:52 PM CDT Oliver Coy MD 10/01/2024 6:00 PM Critical Care Performed by: Aparna Finley APRN, CNP Authorized by: Aparna Finley APRN, CNP Critical care provider statement: Critical care time (minutes): 35 Critical care time was exclusive of: Separately billable procedures and treating other patients Critical care was necessary to treat or prevent imminent or life-threatening deterioration of the following conditions: TIA. Critical care was time spent personally by me on the following activities: Blood draw for specimens, development of treatment plan with patient or surrogate, discussions with consultants, evaluation of patient's response to treatment, examination of patient, obtaining history from patient or surrogate, ordering and performing treatments and interventions, ordering and review of laboratory studies, ordering and review of radiographic studies, pulse oximetry, re-evaluation of patient's condition and review of old charts I assumed direction of critical care for this patient from another provider in my specialty: no Care discussed with: admitting provider us Aparna Finley APRN, CNP PROCEDURE/MINOR SURGI VICKEY ORDERABLES Final Result * EKG 12 LEAD (10/01/2024 12:28 PM CDT) Ventricular Rate 65 BPM EXTERNAL EKG Atrial Rate 65 BPM EXTERNAL EKG P-R Interval 206 ms EXTERNAL EKG QRS Duration 90 ms EXTERNAL EKG Q-T Duration 418 ms EXTERNAL EKG QTC CALCULATION 434 ms EXTERNAL EKG P [place] 53 degrees EXTERNAL EKG R [place] 22 degrees EXTERNAL EKG T [place] 41 degrees EXTERNAL EKG 10/01/2024 12:2 8 PM CDT Impressions EXTERNAL EKG - 10/01/2024 3:07 PM CDT Normal sinus rhythm Nonspecific T wave abnormality Abnormal ECG When compared with ECG of 02-FEB-2017 11:20, No significant change was found Confirmed by BERNADETTE SIEGEL ([id number]) on 10/01/2024 3:07:36 PM Narrative Procedure Note Bernadette Siegel MD - 10/01/2024 IMPRESSION: Normal sinus rhythm Nonspecific T wave abnormality Abnormal ECG When compared with ECG of 02-FEB-2017 11:20, No significant change was found Confirmed by BERNADETTE SIEGEL ([id number]) on 10/01/2024 3:07:36 PM us Oliver Coy MD IMG ECG ORDERABLES Final R esult Performing Organization Address City/[facility]/ZIP Co de Phone Number EXTERNAL EKG * EKG SCAN (10/01/2024 12:00 AM CDT) 10/01/2024 us Provider Scan IMG ECG ORDERABLES Final Result Performing Organization Address [facility] Co de Phone Number RESULTING AGENCY * [facility] BONE DENSITOMETRY AXIAL SKELETON (05/28/2020 10:35 AM CDT) Anatomical Region Laterality Modality BODY N/A Other 06/02/2020 3:53 PM CDT Impressions 06/02/2020 3:56 PM CDT IMPRESSION: Bone mineral density testing within normal limits REFERENCE: Bone mineral density: Normal (T-score above or = -1.0) Low bone mass (T-score between -1.0 and -2.5) replaces the previously used term osteopenia Osteoporosis (T-score = or below -2.5) Medical evaluation for secondary causes of low bone mineral density may be appropriate. FRAX is a World Health Organization validated fracture risk assessment tool that calculates a person's 10 year probability of a major osteoporosis related fracture and hip fracture. According to the National Osteoporosis Foundation guidelines, postmenopausal women and men age 50 or older with low bone mass and a 10 year probability of a major osteoporosis related fracture = or greater than 20% or a 10 year probability of a hip fracture = or greater than 3% should be considered for treatment. For further information, including treatment recommendations, please refer to the 2013 ISCD Official Positions (http://www.iscd.org) and the NOF's Clinician's Guide to Prevention and Treatment of Osteoporosis (http://www.nof.org/professionals/clinical-guidelines) Narrative 06/02/2020 3:56 PM CDT EXAM DESCRIPTION: [facility] BONE DENSITOMETRY AXIAL SKELETON REASON FOR STUDY: 80 year old female with given history of screening. Professional Skateboarder/Model: flatev (S/N [id number]) CLINICAL INFORMATION: Current height: 63 inches Weight: 164 pounds Risk factors: None reported COMPARISON: 07/26/2011 FINDINGS: AP LUMBAR SPINE L1-L2: Total BMD is 1.096 g/cm2 T-score is -0.6 This is increased by 8.8% when compared to the prior study. Bone mineral density testing within the lumbar spine may be unreliable due to scoliosis and sclerotic degenerative changes LEFT HIP: Total BMD is 0.912 g/cm2 T-score is -0.8 This is decreased by 2% when compared to the prior study. Femoral neck BMD is 0.949 g/cm2 T-score is -0.6 Fracture risk assessment (FRAX): 10 year risk for a major osteoporotic fracture is 10.2 % 10 year risk for a hip fracture is 1.8 % The FRAX tool has not been validated in patients currently or previously treated with pharmacotherapy for osteoporosis. In such patients, clinical judgement must be exercised in interpreting FRAX scores as the fracture risk may be overestimated. THIS IS AN ELECTRONICALLY VERIFIED FINAL REPORT 06/02/2020 3:53 PM - Electronically signed by Fab Salcedo M.D. JUSTIN: JUSTIN Report ID: [id number] Reading Location: [id number] Procedure Note Fab Salcedo MD - 06/02/2020 EXAM DESCRIPTION: [facility] BONE DENSITOMETRY AXIAL SKELETON REASON FOR STUDY: 80 year old female with given history of screening. Professional Skateboarder/Model: flatev (S/N [id number]) CLINICAL INFORMATION: Current height: 63 inches Weight: 164 pounds Risk factors: None reported COMPARISON: 07/26/2011 FINDINGS: AP LUMBAR SPINE L1-L2: Total BMD is 1.096 g/cm2 T-score is -0.6 This is increased by 8.8% when compared to the prior study. Bone mineral density testing within the lumbar spine may be unreliable due to scoliosis and sclerotic degenerative changes LEFT HIP: Total BMD is 0.912 g/cm2 T-score is -0.8 This is decreased by 2% when compared to the prior study. Femoral neck BMD is 0.949 g/cm2 T-score is -0.6 Fracture risk assessment (FRAX): 10 year risk for a major osteoporotic fracture is 10.2 % 10 year risk for a hip fracture is 1.8 % The FRAX tool has not been validated in patients currently or previously treated with pharmacotherapy for osteoporosis. In such patients, clinical judgement must be exercised in interpreting FRAX scores as the fracture risk may be overestimated. THIS IS AN ELECTRONICALLY VERIFIED FINAL REPORT 06/02/2020 3:53 PM - Electronically signed by Fab Salcedo M.D. JUSTIN: JUSTIN Report ID: [id number] Reading Location: [place] [address] IMPRESSION: Bone mineral density testing within normal limits REFERENCE: Bone mineral density: Normal (T-score above or = -1.0) Low bone mass (T-score between -1.0 and -2.5) replaces the previously used term osteopenia Osteoporosis (T-score = or below -2.5) Medical evaluation for secondary causes of low bone mineral density may be appropriate. FRAX is a World Health Organization validated fracture risk assessment tool that calculates a person's 10 year probability of a major osteoporosis related fracture and hip fracture. According to the National Osteoporosis Foundation guidelines, postmenopausal women and men age 50 or older with low bone mass and a 10 year probability of a major osteoporosis related fracture = or greater than 20% or a 10 year probability of a hip fracture = or greater than 3% should be considered for treatment. For further information, including treatment recommendations, please refer to the 2013 ISCD Official Positions (http://www.iscd.org) and the NOF's Clinician's Guide to Prevention and Treatment of Osteoporosis (http://www.nof.org/professionals/clinical-guidelines) us Clarisse Munoz APRN, CNP IMG DEXA ORDERABLES Final Result from Last 3 Months or Most Recently Relevant to Health Maintenance Insurance MEDICARE C [facility] [place] [phone] Advance Directives * Full Code (Latest Code Status on File) Date Activated Date Inactivated Comments 10/01/2024 5:25 PM CPR-Full Treat ment: FULL ARREST: Attempt Resuscitation/CPR wit intubation and mechanical ventilation. PRE-ARREST: Use entire range of life support measures to stabilize the patient. * Full Code Date Activated Date Inactivated Comments 02/02/2017 1:16 PM 02/03/2017 2:50 PM CPR-Full T reatment: FULL ARREST: Attempt Resuscitation/CPR wit intubation and mechanical ventilation. PRE-ARREST: Use entire range of life support measures to stabilize the patient. Care Teams Mower Sharpener Relationship Specialty Start Date End Date Kristin Heath DO [address] [address] PCP - General Family Medicine 03/24/24 Laz Nunez DPM Podiatry 03/26/15 Edilia Dailey APRN, [facility] [address] [place] [address] Nurse Practitioner Advanced Practice Nurse 08/15/22 John Fox MD [address] [facility] [place] [id number] Consulting Physician Otolaryngology 08/07/24
--- OUTSIDE RECORDS SUMMARY | 2024-10-09 12:29 | XMS_ITS | Encounter Summary ---
Author Organization [facility] Address [address] [place] [address] Phone Care Team Providers Care Brake Linings Coater Name Role Phone Mayra Laz Paige DPM Unavailable [phone] Edilia Dailey APRN, SENIOR WRITER Unavailable Kristin Heath DO Primary Care Provider [phone] John Fox MD Unavailable [phone] Reason for Visit * Reason Onset Date Comments Advice Only 09/29/2024 Encounter Details Date Type Department Care Team (Late st Contact Info) Description 09/29/2024 [facility]phone [facility] [address] [place] [address] Kristin Heath, DO [address] [place] [address] Advice Only Social History Tobacco Use Types Packs/Day Years Used Date Smoking Tobacco: Former Smokeless Tobacco: Never Alcohol Use Standard Drinks/Week Comments No 0 [...] declined 03/24/2024 How often do you attend christianity or muslim serv ices? Patient declined 03/24/2024 Do you belong to any clubs o r organizations such as christianity groups, unions, fraternal or athletic groups, or school groups? Patient [...] Total Score - Questions 1-9 0 03/08 [facility] - Occupational Stress Questionnaire Answer Date Recorded [...] any time in the past 12 m [facility], were you homeless or living in a detention (including now)? Patient declined 03/24/2024 Hunger Vital [...] any time in the past 12 m [facility], were you homeless or living in a detention (including now)? Patient declined 10/01/2024 [facility] Utilities Answer Date Recorded In the past 12 months has th e [employer], gas, oil, or water company threatened to [...] on file Sexual Orientation Not on file documented as of this encounter Functional Status * Question Answer Date of Assessment Author Little interest or pleasure in doing things Not at all 10/01/2024 8:30 PM CDT Nicolasa Thomas RN Feeling down, depressed, or hopeless Not at all 10/01/2024 8:30 PM CDT Nicolasa Thomas RN * Over the past 2 weeks, how often have you been bothered by any of the following problems? Question Answer Date of Assessment Author Patient Health Questionnaire -2 Score 0 10/01/2024 8:30 PM CDT Nicolasa Thomas RN documented as of this encounter Miscellaneous Notes * Telephone Encounter - Jasmina Haider RN - 09/30/2024 11:34 AM CDT Spoke to patient and relayed provider's recommendations: Advise ER for possible TIA workup, would refer to neuro and get brain imaging, agree with ER [facility] if recurs Patient is willing to go to ER for possible TIA workup, but does not want to go until tomorrow. States she feels fine today, denies all symptoms, and says she has been working in her garden today without any issues. States she will go [facility] if symptoms recur. Patient states she would also be willingto see neuro, if provider thinks it's necessary. * Telephone Encounter - Bing Becker RN - 09/29/2024 1:55 PM CDT SITUATION: 84 y.o. with high blood pressure and trouble moving BACKGROUND: Patient contacting PCP office. Per patient, on Sunday, daughter called 911 because the patient was having trouble moving, especially her hand and her systolic blood pressure was 200. ASSESSMENT: Symptom Description / Location: EMS came to patient and assessed her, verified elevated reading Shortly after, patient began to feel better and SBP was 160s. At that time patient chose to stay home since she was feeling better Since then, patient has felt fine and checked blood pressure today and it was 140/69 Patient states she has been taking her medication normally and on time Patient calling at this time as requested by her daughter to notify provider. RECOMMENDATION: Routing to provider to notify. This RN advised patient to go to the ED if these symptoms recur, as she may not be able to know that they will resolve and acting quickly is important. Patient was also advised for now to keep track of BP this week for provider to review if needed. * Telephone Encounter - Iain Mariscal - 09/29/2024 1:54 PM CDT Symptom: High Blood Pressure - Caller Reports Outcome: Schedule an appointment within 3 days Reason: Caller denied all higher acuity questions The caller rejected this outcome. Caller Denied: * Chest pain * Trouble breathing * Weak or numb on one side of the body only * Change in vision * Severe headache * Getting worse * Trouble walking * Sudden increase within the past 24 hours documented in this encounter Plan of Treatment Upcoming Encounters Date Type Department Care Team (Late st Contact Info) Description 10/10/2024 7:30 AM CDT Office Visit [facility] - Family Medicine [facility] [address] [place] [address] Janice Pizano EVENT PROMOTIONS COORDINATOR, SENIOR WRITER 2 [facility] [address] [place] [address] documented as of this encounter Visit Diagnoses Not on filedocumented in this encounter Additional Health Concerns Assessment Noted Time PHQ-9 Depression Total Score: 0 03/24/19 12:54 PM SCRAP DROP CRANE OPERATOR documented as of this encounter Care Teams Brake Linings Coater Relationship Specialty Start Date End Date Kristin Heath DO 2 [facility] [address] [facility] [address] [place] [address] PCP - General Family Medicine 03/24/24 Laz Nunez DPM Podiatry 03/26/15 Edilia Dailey APRN, SENIOR WRITER [address] [place] [address] Nurse Practitioner Advanced Practice Nurse 08/15/22 John Fox MD [address] [facility] [facility] [address] [place] [address] Consulting Physician Otolaryngology 08/07/24 documented as of this encounter
--- OUTSIDE RECORDS SUMMARY | 2024-10-09 12:29 | XMS_ITS | Clinical Summary ---
Author Organization [facility] Address [address] [place] [address] Care Team Providers Care Marine Engine Machinist Apprentice Name Role Phone Eric Jim MD Primary Care Provider [phone] Allergies No known active allergies Medications aspirin 81 mg enteric coated tablet Take 81 mg by mouth daily Active amLODIPine (NORVASC) 10 mg tabletIndication s:Hypertension, essential TAKE 1 TABLET(10 MG) BY MOUTH DAILY 90 tablet 1 01/17/2021 Active Active Problems Problem Noted Date Diagnosed Date Encounter for Medicare annual wellness exam 06/2020 Assessment & Plan (04/09/2020 7:57 AM CONTROLLER REPAIRER AND TESTER): 1. Eat a healthy diet: focus on lean meats and proteins, more fruits, vegetables and whole grains and low in sugars and fats. Limit red meat and avoid processed meat. 2. Maintain a healthy weight; avoid being overweight. Aim for a normal body mass index (BMI) of 18.5-24.9. Help learning to eat healthier, we can set up appointment with wing commander/mechanical systems control engineer. 3. Have an active lifestyle, strive for 30 minutes of moderate exercise 5 times a week and strength or resistance training at least twice a week. 4. Use broad-spectrum (UVA+UVB) sunscreen with SPF 30 or greater, is water resistant, limit time spent in the sun (10 am-4pm), wear hat, wear UV protective clothing, wear sunglasses. Never use a tanning bed. Skin that was irradiated may be more sensitive over your lifetime. 5. Do not smoke or chew tobacco; participate in a smoking cessation program. 6. Limit alcohol intake, 1 drink per day for a woman. Hypertension, essential 04/09/2020 Assessment & Plan (04/09/2020 8:38 AM CONTROLLER REPAIRER AND TESTER): The blood pressure is under good control. [...] of amlodipine. 10 day supply sent to [facility] in case it does not arrive today. Encounter for osteoporosis s creening in asymptomatic postmenopausal patient 04/09/2020 Assessment & Plan (04/09/2020 7:57 AM CONTROLLER REPAIRER AND TESTER): DEXA ordered. Will contact with results once received. BMI 29.0-29.9,adult 04/09/2020 Assessment & Plan (04/09/2020 8:43 AM CONTROLLER REPAIRER AND TESTER): Discussed healthy diet and importance of regular physical activity. BMI is acceptable for this patient. Congratulated on physically active days. Rides stationary bike every morning x20min reciting rosary. Walks on treadmill every afternoon x20 min reciting rosary also. Does arm/leg exercises every evening. Lip lesion 04/09/2020 Assessment & Plan (04/09/2020 8:41 AM CONTROLLER REPAIRER AND TESTER): New R lower lip lesion in past month approximately. Blue/purple in color. Has seen Dr Garner in past for back lesion. Would like to return to her clinic. Contact info given to Mrs Friedman. Encounter for screening mammogram for breast can cer 04/11/2017 Other hyperlipidemia 04/11/2017 Assessment & Plan (04/09/2020 8:39 AM CONTROLLER REPAIRER AND TESTER): 07/26/17 RS=707 HDL=83 TG=98 MHB=877 TC/HDL=3.5 07/23/18 UT=522 HDL=83 GT=880 RYX=216 TC/HDL=3.0 11/12/19 CG=773 HDL=76 WP=346 GEA=401 TC/HDL=3.0 Cannot tolerate statin therapy. Watches intake & exercises 3x/day. Statin intolerance 02/02/2017 Gastroesophageal reflux disease 06/21/2013 Overview (05/11/2016): ESOPHAGEAL REFLUX Resolved Problems Problem Noted Date Diagnosed Date Resolved Date Breast pain, right 04/11/2017 Assessment & Plan (04/11/2017 3:50 PM CONTROLLER REPAIRER AND TESTER): Pt. Complain of right breast different feeling. No pain but just feels different. Has been going on for at least 6 months. No skin changes, no discharge, no changes in skin color or texture, no dimpling. Last Cristian in July 2016 normal. Will have patient do regular screening cristian in July of 2017 and monitor for changes in skin, lumps, bumps or discharge. Elevated blood-pressure read ing without diagnosis of hypertension 06/21/2013 04/09/2020 Overview (05/11/2016): ELEV BL PRES W/O HYPERTN Immunizations Immunization Administration Dates Next Due Influenza, Quadrivalent, Spl it, Preservative Free, Intramuscular 11/05/2019 Influenza, Trivalent, IM (MDV) 10/06/2014 Influenza, Trivalent, Preser vative Free, Intramuscular 12/22/2013,10/24/2013 Influenza, Trivalent, Recomb inant, Egg Free, Preservative Free, Antibiotic Free, IM (FLUBLOK) 11/17/2014 Influenza, Unspecified 11/05/2017,11/05/2016, Pfizer SARS-CoV-2 Monovalent Vaccination (12+ Yrs) PURPLE 03/30/2020 Pneumococcal Conjugate PCV 13 07/17/2018 Pneumococcal Polysaccharide PPV23 04/17/2013,05/2012 ZOSTER LIVE 08/29/2012 Surgical History Surgery Date Site/Laterality Comments OTHER SURGICAL HISTORY bunionectomy left foot OTHER SURGICAL HISTORY arthroscopy - right knee OOPHORECTOMY 1961 oophorectomy KNEE ARTHROPLASTY Left Knee replacement KNEE ARTHROPLASTY Right Knee replacement Medical History Medical History Date Comments Osteoarthritis Osteoarthritis; Comments: [facility] 05/21/2014 - Bilateral knee replacement Hypertension GERD (gastroesophageal reflux disease) Hyperlipidemia Family History Medical History Relation Name Comments Coronary artery disease Brother 2 Shira nary artery disease; Coronary artery disease Father Shira nary artery disease; Obesity Mother Obesity; Other Mother's Sister 2 Cancer, br east, parkinson's; Relation Name Status Comments Brother 1 Alive Brother 2 Father Mother Mother's Sister 1 Alive Mother's Sister 2 Social History Tobacco Use Types Packs/Day Years Used Date Smoking Tobacco: Former Cigarettes Q uit: 2006 Smokeless Tobacco: Never Alcohol Use Standard Drinks/Week Comments Yes 0 (1 standard drink = 0.6 oz pur e alcohol) PHQ-2 Answer Date Recorded PHQ-2 Total Score (If total score is 3 or more points, staff should administer the PHQ-9) 0 04/09/2020 Comments Unknown Sex and Gender Information Value Date Recorded Sex Assigned at Not on file Legal Sex Female 10:48 AM CONTROLLER REPAIRER AND TESTER Gender Identity Not on file Sexual Orientation Not on file Obstetrics History Last Filed Vital Signs Vital Sign Reading Time Taken Comments Blood Pressure 136/74 04/09/2020 8:02 AM CONTROLLER REPAIRER AND TESTER Pulse 70 04/09/2020 8:02 AM CONTROLLER REPAIRER AND TESTER Temperature 36.3 C (97.3 F) 04/09/2020 8:02 AM CONTROLLER REPAIRER AND TESTER Respiratory Rate 16 04/09/2020 8:02 AM CONTROLLER REPAIRER AND TESTER Oxygen Saturation 99% 04/09/2020 8:02 AM CONTROLLER REPAIRER AND TESTER Inhaled Oxygen Concentration - - Weight 76.3 kg (168 lb 3.2 oz) 04/09/2020 8:02 A M CONTROLLER REPAIRER AND TESTER Height 160 cm (5' 3) 04/09/2020 8:02 AM CONTROLLER REPAIRER AND TESTER Body Mass Index 29.8 04/09/2020 8:02 AM CONTROLLER REPAIRER AND TESTER Plan of Treatment Not on file Insurance [facility] H[facility] REF [facility] Address[facility] [address] [address] [place] [address] [facility] HMO REF [facility] Address: [address] [address] [place] [address] Care Teams Marine Engine Machinist Apprentice Relationship Specialty Start Date End Date [place] [address] PCP - General 02/12/06
== END 2024-10-09 12:25 | disposition left against medical advice (07) ==
PROVIDERS: Visit Provider Nurse Practitioner
DX: Z53.21 Procedure and treatment not carried out due to patient leaving prior to being seen by health care provider (principal)
CPT/HCPCS: 99199